=== PATIENT | female | born 1995 ===

== ENCOUNTER → 2025-10-14 09:30 | Outpatient (REF) | payer OTHER, SELFPAY | LOC: HO.CARD 09:30 | PROVIDERS: Visit Provider Internal Medicine | DX: R00.2 Palpitations (principal) | CPT/HCPCS: 93242 ==

== ENCOUNTER → 2025-10-14 09:30 | Outpatient (BNV) | payer OTHER, SELFPAY | PROVIDERS: Visit Provider Internal Medicine | DX: I49.3 Ventricular premature depolarization (principal); I49.49 Other premature depolarization | CPT/HCPCS: 93244 ==